=== PATIENT | male | born 1965 | race Caucasian/White ===

== ENCOUNTER → 2016-05-04 | Outpatient (CLI) | payer BC ==
--- NOTE | 2016-05-04 13:58 | DIAGNOSTIC IMAGING REPORT ---
CHEST 2 VIEWS ROUTINE CLINICAL HISTORY: Left-sided rib pain following fall. COMPARISON STUDY: No previous studies for comparison. FINDINGS: There is no pneumothorax or pleural effusion. Lungs are clear. Cardiac size is normal. Mediastinal contours are normal. No rib fractures are identified although sensitivity is somewhat diminished given this technique. IMPRESSION: 1. No acute cardiopulmonary findings. 2. No left-sided rib fractures identified although sensitivity is somewhat diminished given this technique. Electronically signed by: Ricki Gomez M.D. 05/04/2016 1:56 PM
== END | disposition home or self-care (01) ==
LOC: C.RAD1850 13:36
PROVIDERS: ATTEND Nurse Practitioner Family
DX: V00.3 Flat-bottomed pedestrian conveyance accident (principal); R07.81 Pleurodynia

== ENCOUNTER 2021-01-09 10:48 | Observation (INO) ==
[2021-01-09 11:44] LABS: Basophils # (auto) 0.02 K/uL (0-0.2); Basophils % (auto) 0.4 %; Eosinophils # (auto) 0.09 K/uL (0-0.5); Eosinophils % (auto) 1.8 %; Hematocrit (blood only) 43.3 % (42-52); Hemoglobin 14.6 g/dL (14.0-18.0); Immature Granulocytes # (auto) 0.06 K/uL (0.00-0.02); Immature Granulocytes % (auto) 1.2 %; Lymphocytes # (auto) 1.25 K/uL (1.2-3.4); Lymphocytes % (auto) 24.9 %; Mean Corpuscular Hemoglobin 31.5 pg (25-34); Mean Corpuscular Hgb Conc 33.7 g/dL (32-36); Mean Corpuscular Volume 93.5 fL (80-100); Mean Platelet Volume 11.3 fL (7.4-10.4); Monocytes # (auto) 0.56 K/uL (0.11-0.59); Monocytes % (auto) 11.2 %; Neutrophils # (auto) 3.04 K/uL (1.4-6.5); Neutrophils % (auto) 60.5 %; Platelet Count 174 K/uL (130-400); RDW Coefficient of Variation 12.6 % (11.5-14.5); RDW Standard Deviation 43.2 fL (36.4-46.3); Red Blood Count 4.63 M/uL (4.7-6.1); White Blood Count 5.02 K/uL (4.8-10.8)
--- NOTE | 2021-01-09 11:51 | XRay Report ---
RIGHT FOOT 3 VIEWS HISTORY: right foot pain COMPARISON: None. FINDINGS: There is no fracture or dislocation. Soft tissues are unremarkable. No radiopaque foreign b odies. Mild osteoarthritis at the first MTP joint. IMPRESSION: No fractures. ACT 112: Negative or not required by law. Electronically signed by: Brayan Nunez M.D. 01/09/2021 11:49 AM
--- NOTE | 2021-01-09 12:03 | Emergency Department Note ---
Impression & Plan Dennison palsy, Elevated troponin, Right foot pain ED Provider Note NAME: JOY BRYAN AGE: 55 SEX: M : 1965 ARRIVES VIA: Walk-In INFORMANT: Patient ED PROVIDER(S): Dav Hansen DO CHIEF COMPLAINT: facial droop HPI: Patient is a 55-year-old male who presents to the ER for the past 2days right-sided facial droop. Patient notes that he is having trouble closing his eyes, smiling and lifting the right side of his forehead. No recent tick bites but he notes he has had ticks on him previously. He has some pain in the foot which started over a week ago which is in between his first and second metatarsal. This has been there [place] the [place]. He denies any other weakness or numbness. No chest pain or shortness of breath. Patient did recently just drive 7 hours in the car twice over the past week. ROS: See above HPI for pertinent positives & negatives. A total of 10 systems reviewed and were otherwise negative. PAST MEDICAL HISTORY:See Below PAST SURGICAL HISTORY:See Below FAMILY HISTORY:See Below SOCIAL HISTORY:See Below HOME MEDICATIONS:See Below ALLERGIES:See Below VITALS:See Below PHYSICAL EXAMINATION: GENERAL: Sitting up in bed, alert, well appearing, well nourished, no distress, non-toxic EYE EXAM: normal conjunctiva. PERRL and EOM's intact. OROPHARYNX: no exudate, no erythema, lips, buccal mucosa, and tongue normal and mucous membranes are moist NECK: supple, no nuchal rigidity, no adenopathy, non-tender LUNGS: Clear to auscultation. Normal chest wall mechanics HEART: no murmurs, S1 normal and S2 normal ABDOMEN: abdomen soft, non-tender, normo-active bowel sounds, no masses, no rebound or guarding. BACK: Back is symmetrical on inspection and there is no deformity, no midline tenderness, no CVA tenderness. UPPER EXTREMITIES: upper extremities are grossly normal. LOWER EXTREMITIES: No pitting edema. NEURO EXAM: Normal sensorium, right-sided facial droop, unable to completely lift the right eyebrow, normal speech, no weakness of arms, no weakness of legs. No drift. Finger to nose intact. Gross sensation intact. Rapid alternating movements of upper extremities intact. [id number] intact. MEDICAL DECISION MAKING: Patient is a 55-year-old male who presents ER with a facial droop. He is found to have what appears to be consistent with Dennison's palsy. IV was established blood was obtained. Labs show no significant leukocytosis or anemia. D-dimer was elevated. BMP LFTs bilirubin was unremarkable. Troponin was elevated at 0.139. Lyme IgM came back equivocal and he was admitted at this point. Hospitalist elected to treat him prophylactically until the very final results. With a bump troponin question of this secondary to PE and CT angio was performed and unremarkable. Could also be a Lyme carditis. Patient is completely asymptomatic at this point. Discussed with hospitalist for further evaluation. Triage Nursing notes reviewed. Limited review of prior medical records performed Vital Signs: reviewed and remarkable for HTN Differential diagnosis: Differential Diagnosis includes but is not limited to ischemic Stroke, hemorrhagic stroke, bells palsy, mass, neoplasm, migraine headache, seizure, sub arachnoid hemorrhage, TIA, and transient global amnesia. ER treatment provided: See below Diagnostics interpreted by me: ECG: Sinus rhythm rate of 61 Normal axis No PVCs T wave inversion in lead III QTC 398 Cardiac Monitoring: An order was placed for continuous cardiac monitoring. The monitor shows a rate of 60 with sinus rhythm. Laboratory studies: As stated above and show below. Imaging studies: CT angio was negative for any PEs CT head was negative. 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 Required: No Beliefs That Will Affect Care: None Current Living Situation: Spouse Other Information That Helps Us Care for You: No Feels Safe at Home: Yes Safety Concerns: Feels Safe At This Time Assistive Devices: Glasses Allergies Allergies Allergy/AdvReac Type Severity Reaction Status Date / Time No Known Allergies Allergy Verified 01/09/21 12:59 Home Meds Home Medications Medication Instructions Recorded Confirmed multivitamin 1 tab PO QAM 05/20/19 01/09/21 simvastatin 20 mg tablet 20 mg PO QAM 05/20/19 01/09/21 aspirin 81 mg tablet,delayed 81 mg PO DAILY 01/09/21 01/09/21 release (Aspirin Low Dose) Results & Data (ED) Vital Signs Vital Signs - 24 hr 01/09/21 11:09 01/09/21 11:30 01/09/21 12:00 Temperature 36.6 C Temperature Source Temporal Artery Scan Pulse Rate 66 63 66 Pulse Rate [Left Finger] Respiratory Rate 16 18 18 Respiratory Effort / Characteristics Non-Labored Respiratory Depth Normal Blood Pressure 165/104 H Blood Pressure [Left Arm] Blood Pressure Mean 124 Blood Pressure Mean [Left Arm] Blood Pressure Position [Left Arm] Pulse Oximetry 97 95 97 Oxygen Delivery Method Room Air Sepsis Recent Fever Within 48 Hours No Sepsis New/Unexplained Change in Mental Status No Sepsis Action Taken by Nursing No Action Required 01/09/21 12:36 01/09/21 13:28 Temperature Temperature Source Pulse Rate 61 70 Pulse Rate [Left Finger] 57 L Respiratory Rate 13 20 Respiratory Effort / Characteristics Respiratory Depth Blood Pressure 150/107 H 153/95 H Blood Pressure [Left Arm] 150/107 H Blood Pressure Mean 121 114 Blood Pressure Mean [Left Arm] 121 Blood Pressure Position [Left Arm] Sitting Pulse Oximetry 98 97 Oxygen Delivery Method Sepsis Recent Fever Within 48 Hours Sepsis New/Unexplained Change in Mental Status Sepsis Action Taken by Nursing Laboratory Data Result diagrams: 01/09/21 11:35 01/09/21 11:35 Lab Results 01/09/21 01/09/21 01/09/21 Range/Units 11:35 11:35 11:35 WBC 5.02 (4.8-10.8) K/uL RBC 4.63 L (4.7-6.1) M/uL Hgb 14.6 (14.0-18.0) g/dL Hct 43.3 (42-52) % MCV 93.5 (80-100) fL MCH 31.5 (25-34) pg MCHC 33.7 (32-36) g/dL RDW Std Deviation 43.2 (36.4-46.3) fL RDW Coeff of Virgilio 12.6 (11.5-14.5) % Plt Count 174 (130-400) K/uL MPV 11.3 H (7.4-10.4) fL Immature Gran % (Auto) 1.2 % Neut % (Auto) 60.5 % Lymph % (Auto) 24.9 % [place] % (Auto) 11.2 % Eos % (Auto) 1.8 % Baso % (Auto) 0.4 % Neut # (Auto) 3.04 (1.4-6.5) K/uL Lymph # (Auto) 1.25 (1.2-3.4) K/uL [place] # (Auto) 0.56 (0.11-0.59) K/uL Eos # (Auto) 0.09 (0-0.5) K/uL Baso # (Auto) 0.02 (0-0.2) K/uL Immature Gran # (Auto) 0.06 H (0.00-0.02) K/uL ESR (0-20) mm/hr D-Dimer (0-500) ug/L FEU Sodium 140 (136-145) mmol/L Potassium 4.3 (3.5-5.1) mmol/L Chloride 105 (98-107) mmol/L Carbon Dioxide 28 (21-32) mmol/L Anion Gap 7.0 (3-11) BUN 18 (7-18) mg/dl Creatinine 1.01 (0.6-1.4) mg/dl Est Cr Clr Drug Dosing 103.5 ml/min Est GFR ( Amer) 96.6 ml/min Est GFR (Non-Af Amer) 83.3 ml/min BUN/Creatinine Ratio 17.8 (10-20) Glucose 108 H (70-99) mg/dl Calcium 8.7 (8.5-10.1) mg/dl Total Bilirubin 0.5 (0.2-1) mg/dl AST 44 H (15-37) U/L ALT 65 (12-78) U/L Alkaline Phosphatase 45 (45-117) U/L Troponin I (0-0.045) ng/ml C-Reactive Protein (0-0.29) mg/dl Total Protein 7.0 (6.4-8.2) gm/dl Albumin 3.9 (3.4-5.0) gm/dl Globulin 3.1 (2.5-4.0) gm/dl Albumin/Globulin Ratio 1.3 (0.9-2) Lyme Disease IgG Ab Negative (Negative) Lyme Disease IgM Ab Equivocal A (Negative) COVID-19 Eval Order SARS-CoV-2 (PCR) (Negative) 01/09/21 01/09/21 01/09/21 Range/Units 11:35 11:35 11:35 WBC (4.8-10.8) K/uL RBC (4.7-6.1) M/uL Hgb (14.0-18.0) g/dL Hct (42-52) % MCV (80-100) fL MCH (25-34) pg MCHC (32-36) g/dL RDW Std Deviation (36.4-46.3) fL RDW Coeff of Virgilio (11.5-14.5) % Plt Count (130-400) K/uL MPV (7.4-10.4) fL Immature Gran % (Auto) % Neut % (Auto) % Lymph % (Auto) % [place] % (Auto) % Eos % (Auto) % Baso % (Auto) % Neut # (Auto) (1.4-6.5) K/uL Lymph # (Auto) (1.2-3.4) K/uL [place] # (Auto) (0.11-0.59) K/uL Eos # (Auto) (0-0.5) K/uL Baso # (Auto) (0-0.2) K/uL Immature Gran # (Auto) (0.00-0.02) K/uL ESR 5 (0-20) mm/hr D-Dimer 610 H* (0-500) ug/L FEU Sodium (136-145) mmol/L Potassium (3.5-5.1) mmol/L Chloride (98-107) mmol/L Carbon Dioxide (21-32) mmol/L Anion Gap (3-11) BUN (7-18) mg/dl Creatinine (0.6-1.4) mg/dl Est Cr Clr Drug Dosing ml/min Est GFR ( Amer) ml/min Est GFR (Non-Af Amer) ml/min BUN/Creatinine Ratio (10-20) Glucose (70-99) mg/dl Calcium (8.5-10.1) mg/dl Total Bilirubin (0.2-1) mg/dl AST (15-37) U/L ALT (12-78) U/L Alkaline Phosphatase (45-117) U/L Troponin I 0.137 H* (0-0.045) ng/ml C-Reactive Protein (0-0.29) mg/dl Total Protein (6.4-8.2) gm/dl Albumin (3.4-5.0) gm/dl Globulin (2.5-4.0) gm/dl Albumin/Globulin Ratio (0.9-2) Lyme Disease IgG Ab (Negative) Lyme Disease IgM Ab (Negative) COVID-19 Eval Order SARS-CoV-2 (PCR) (Negative) 01/09/21 01/09/21 01/09/21 Range/Units 11:35 13:12 13:12 WBC (4.8-10.8) K/uL RBC (4.7-6.1) M/uL Hgb (14.0-18.0) g/dL Hct (42-52) % MCV (80-100) fL MCH (25-34) pg MCHC (32-36) g/dL RDW Std Deviation (36.4-46.3) fL RDW Coeff of Virgilio (11.5-14.5) % Plt Count (130-400) K/uL MPV (7.4-10.4) fL Immature Gran % (Auto) % Neut % (Auto) % Lymph % (Auto) % [place] % (Auto) % Eos % (Auto) % Baso % (Auto) % Neut # (Auto) (1.4-6.5) K/uL Lymph # (Auto) (1.2-3.4) K/uL [place] # (Auto) (0.11-0.59) K/uL Eos # (Auto) (0-0.5) K/uL Baso # (Auto) (0-0.2) K/uL Immature Gran # (Auto) (0.00-0.02) K/uL ESR (0-20) mm/hr D-Dimer (0-500) ug/L FEU Sodium (136-145) mmol/L Potassium (3.5-5.1) mmol/L Chloride (98-107) mmol/L Carbon Dioxide (21-32) mmol/L Anion Gap (3-11) BUN (7-18) mg/dl Creatinine (0.6-1.4) mg/dl Est Cr Clr Drug Dosing ml/min Est GFR ( Amer) ml/min Est GFR (Non-Af Amer) ml/min BUN/Creatinine Ratio (10-20) Glucose (70-99) mg/dl Calcium (8.5-10.1) mg/dl Total Bilirubin (0.2-1) mg/dl AST (15-37) U/L ALT (12-78) U/L Alkaline Phosphatase (45-117) U/L Troponin I (0-0.045) ng/ml C-Reactive Protein < 0.29 (0-0.29) mg/dl Total Protein (6.4-8.2) gm/dl Albumin (3.4-5.0) gm/dl Globulin (2.5-4.0) gm/dl Albumin/Globulin Ratio (0.9-2) Lyme Disease IgG Ab (Negative) Lyme Disease IgM Ab (Negative) COVID-19 Eval [address] Covid19 at [facility] SARS-CoV-2 (PCR) NEGATIVE (Negative) Administered Medications Prednisone (Prednisone 50 Mg Tab) 50 mg PO DAILY IRISH Stop: 02/08/21 15:14 Last Admin: 01/09/21 18:19 Dose: 50 mg Documented by: [id number] Discontinued Medications Enoxaparin Sodium (Enoxaparin Inj 40 Mg/0.4 Ml Syr) 40 mg SQ DAILY STA Stop: 01/09/21 14:15 Last Admin: 01/09/21 16:37 Dose: Not Given Documented by: [id number] Doxycycline Hyclate 100 mg/ (Dextrose) 110 mls @ 50 mls/hr IV NOW STA Stop: 01/09/21 16:42 Last Admin: 01/09/21 16:36 Dose: 50 mls/hr Documented by: [id number] Ioversol (Optiray 320 125ml) 118 ml IV ONCE ONE Stop: 01/09/21 13:10 Last Admin: 01/09/21 13:09 Dose: 118 ml Documented by: [id number] Pantoprazole Sodium (Pantoprazole 40 Mg Tab) 40 mg PO NOW STA Stop: 01/09/21 15:07 Last Admin: 01/09/21 18:18 Dose: 40 mg Documented by: [id number] Imaging Data Radiologist's Impression: Foot X-Ray 01/09/21 11:35 RIGHT FOOT 3 VIEWS HISTORY: right foot pain COMPARISON: None. FINDINGS: There is no fracture or dislocation. Soft tissues are unremarkable. No radiopaque foreign bodies. Mild osteoarthritis at the first MTP joint. IMPRESSION: No fractures. ACT 112: Negative or not required by law. Electronically signed by: Brayan Nunez M.D. 01/09/2021 11:[address] 01/09/21 12:[address] DOSE: 614.27 mGy.cm HISTORY: Right-sided facial droop TECHNIQUE: Multiaxial CT images of the head were performed without the use of intravenous contrast. Automated exposure control was utilized for this study. A dose lowering technique was utilized adhering to the principles of ALARA. Comparison: None. Findings: The paranasal sinuses and mastoid air cells are clear. The calvarium and skull base are intact. The ventricles and sulci are within normal limits. There is no mass, hematoma, midline shift, or acute infarct. Impression: No acute intracranial abnormality. ACT 112: Negative or not required by law. Electronically signed by: Brayan Nunez M.D. 01/09/2021 1:19 PM Chest CTA 01/09/21 13:06 CHEST CTA for PULMONARY ARTER[address] CT DOSE: 693.20 mGy.cm HISTORY: Assess for pulmonary embolus. +trop 7hr in car TECHNIQUE: Multiaxial CT images of the chest were performed following the intravenous administration of contrast to evaluate the pulmonary arteries. Maximal intensity projection images were also obtained. A dose lowering technique was utilized adhering to the principles of ALARA. COMPARISON STUDY: None. FINDINGS: Limited views of the upper abdomen demonstrate normal liver, spleen, and adrenal glands. Normal esophagus. No mediastinal or hilar lymphadenopathy. No pleural or pericardial effusions. The heart is normal in size. No suspicious lytic are blastic osseous lesions. Normal caliber thoracic aorta with no evidence for dissection. No filling defects within the pulmonary arteries to suggest a pulmonary embolus. The central airways are patent. No pneumothorax. No focal lung consolidations to suggest pneumonia. A 6 mm subpleural nodule within the right lower lobe in image 142. A 4 mm subpleural nodule within the base of the left lower lobe on image 36. IMPRESSION: 1. No evidence for pulmonary embolus. 2. A 6 mm subpleural nodule within the right lower lobe and a 4 mm subpleural nodule within the base of the left lower lobe. Follow-up recommended below. Please refer to below summary of Fleischner criteria recommendations for follow- up of incidental CT nodules (Andrew Quesada, Guidelines for management of small pulmonary nodules detected on CT scans: A statement from the Fleischner Society, Radiology 237: [phone].) SOLID NODULES Solitary nodule size: <6 mm * Low risk patients: no follow-up needed * high risk patients: optional CT at 12 months Solitary nodule size: 6-8 mm * Low risk patients: follow-up at 6-12 months, then consider further follow-up at 18-24 months * high risk patients: initial follow-up CT at 6-12 months and then at 18-24 months if no change Solitary nodule size: >8 mm * either low or high risk patients - consider follow-up CT at 3 months, and/or CT-PET, and/or biopsy Multiple nodules size: <6 mm * Low risk patients: no routine follow-up * high risk patients: optional CT at 12 months Multiple nodules size: 6-8 mm * Low risk patients: follow-up at 3-6 months, then consider further follow-up at 18-24 months * high risk patients: follow-up at 3-6 months, then at 18-24 months if no change Multiple nodules size: >8 mm * Low risk patients: follow-up at 3-6 months, then consider further follow-up at 18-24 months * high risk patients: follow-up at 3-6 months, then at 18-24 months if no change Note: newly detected indeterminate nodule in persons 35 years of age or older. * Low risk patients: minimal or absent history of smoking and/or other known risk factors * high risk patients: history of smoking or of other known risk factors (e.g. first degree relative with lung cancer, or exposure to asbestos, radon, uranium) * if a nodule up to 8 mm is partly solid or is ground glass further follow-up is required after 24 months to exclude possible slow growing adenocarcinoma (MONICA) SUBSOLID NODULES Solitary pure ground-glass nodule * nodule size <6 mm - no CT follow-up required * nodule size >=6 mm - follow-up CT at 6-12 months, then every 2 years until 5 years Solitary part-solid nodule * nodule size <6 mm - no CT follow-up required * nodule size >=6 mm - follow-up CT at 3-6 months. If unchanged, and solid component remains <6 mm, then annual follow-up for 5 years Multiple subsolid nodules * nodule size <6 mm - follow-up CT at 3-6 months, consider further follow-up at 2 and 4 years if stable * nodule size >=6 mm - follow-up CT at 3-6 months, subsequent management based on the most suspicious nodule(s) ACT 112: Negative or not required by law. Electronically signed by: Brayan Nunez M.D. 01/09/2021 1:38 PM Brain MRI 01/09/21 14:03 Brain MRI WITHOUT CONTRAST HISTORY: Right-sided facial droop. evaluate for ischemia TECHNIQUE: Multiplanar multisequence MRI of the brain was performed without the use of contrast. COMPARISON STUDY: Head CT 01/09/2021. FINDINGS: There are no areas of restricted diffusion to suggest acute infarction. The midline structures are intact. Small retention cyst within the right maxillary sinus. The mastoid air cells are clear. The ventricles and sulci are within normal limits for age. There is no mass, hematoma, midline shift. The major vascular flow-voids at the skull base are well maintained. A few scattered foci of T2 hyperintensity seen within the periventricular and subcortical white matter of the supratentorial brain. These are most pronounced within the bilateral parietal lobes. IMPRESSION: 1. No acute infarct. 2. No acute intracranial hemorrhage. 3. A few scattered foci of T2 hyperintensity seen within the periventricular and subcortical white matter of the supratentorial brain. These are most pronounced within the bilateral parietal lobes. These are nonspecific but favor mild microvascular ischemic change. A demyelinating disease or Lyme disease could also have a similar appearance but are considered less likely. ACT 112: Negative or not required by law. Electronically signed by: Brayan Nunez M.D. 01/09/2021 5:36 PM Discharge Plan Visit Data Chief Complaint: Dennison's Palsy Symptoms Stated Complaint: Dennison's Palsy Symptoms FOOT PAIN ED Provider: Dav Hansen Discharge Problem: Dennison palsy, Elevated troponin, Right foot pain Patient Disposition: Admitted As Inpatient Discharge Instructions Interventions: ED Discharge Assessment Last Done: 01/09/21 15:20
[2021-01-09 12:06] LABS: Albumin Level 3.9 gm/dl (3.4-5.0); BUN Creatinine Ratio 17.8 (10-20); Calcium 8.7 mg/dl (8.5-10.1); Creatinine Clr Calc Pharmacy 103.5 ml/min; Est GFR (African American) 96.6 ml/min; Est GFR (Non-African American) 83.3 ml/min; Potassium 4.3 mmol/L (3.5-5.1)
[2021-01-09 12:08] LABS: Albumin Globulin Ratio 1.3 (0.9-2); Bilirubin,Total 0.5 mg/dl (0.2-1); Globulin 3.1 gm/dl (2.5-4.0)
[2021-01-09 12:52] LABS: Lyme Ab IgG w/WB Rflx Negative (Negative)
[2021-01-09] MEDS ORDERED: OPTIRAY 320 125ml IV ONE (13:09)
[2021-01-09 13:11] LABS: Lyme Ab IgM w/WB Rflx Equivocal (Negative)
--- NOTE | 2021-01-09 13:20 | CT Scan Report ---
HEAD CT NONCONTRAST CT DOSE: 614.27 mGy.cm HISTORY: Right-sided facial droop TECHNIQUE: Multiaxial CT images of the head were performed without the use of intravenous contrast. A utomated exposure control was utilized for this study. A dose lowering technique was utilized adheri ng to the principles of ALARA. Comparison: None. Findings: The paranasal sinuses and mastoid air cells are clear. The calvarium and skull base are int act. The ventricles and sulci are within normal limits. There is no mass, hematoma, midline shift, or acute infarct. Impression: No acute intracranial abnormality. ACT 112: Negative or not required by law. Electronically signed by: Brayan Nunez M.D. 01/09/2021 1:19 PM
[2021-01-09 13:28] LABS: D Dimer 610 ug/L FEU (0-500)
--- NOTE | 2021-01-09 13:39 | CT Scan Report ---
CHEST CTA for PULMONARY ARTERIES CT DOSE: 693.20 mGy.cm HISTORY: Assess for pulmonary embolus. +trop 7hr in car TECHNIQUE: Multiaxial CT images of the chest were performed following the intravenous administration of contrast to evaluate the pulmonary arteries. Maximal intensity projection images were also obtaine d. A dose lowering technique was utilized adhering to the principles of ALARA. COMPARISON STUDY: None. FINDINGS: Limited views of the upper abdomen demonstrate normal liver, spleen, and adrenal glands. No rmal esophagus. No mediastinal or hilar lymphadenopathy. No pleural or pericardial effusions. The hea rt is normal in size. No suspicious lytic are blastic osseous lesions. Normal caliber thoracic aorta with no evidence for dissection. No filling defects within the pulmonary arteries to suggest a pulmon david embolus. The central airways are patent. No pneumothorax. No focal lung consolidations to suggest pneumonia. A 6 mm subpleural nodule within the right lower lobe in image 142. A 4 mm subpleural nodu le within the base of the left lower lobe on image 36. IMPRESSION: 1. No evidence for pulmonary embolus. 2. A 6 mm subpleural nodule within the right lower lobe and a 4 mm subpleural nodule within the base of the left lower lobe. Follow-up recommended below. Please refer to below summary of Fleischner criteria recommendations for follow-up of incidental CT n odules (Andrew Quesada, Guidelines for management of small pulmonary nodules detected on CT scans: A sta tement from the Fleischner Society, Radiology 237: [phone].) SOLID NODULES Solitary nodule size: <6 mm * Low risk patients: no follow-up needed * high risk patients: optional CT at 12 months Solitary nodule size: 6-8 mm * Low risk patients: follow-up at 6-12 months, then consider further follow-up at 18-24 months * high risk patients: initial follow-up CT at 6-12 months and then at 18-24 months if no change Solitary nodule size: >8 mm * either low or high risk patients - consider follow-up CT at 3 months, and/or CT-PET, and/or biopsy Multiple nodules size: <6 mm * Low risk patients: no routine follow-up * high risk patients: optional CT at 12 months Multiple nodules size: 6-8 mm * Low risk patients: follow-up at 3-6 months, then consider further follow-up at 18-24 months * high risk patients: follow-up at 3-6 months, then at 18-24 months if no change Multiple nodules size: >8 mm * Low risk patients: follow-up at 3-6 months, then consider further follow-up at 18-24 months * high risk patients: follow-up at 3-6 months, then at 18-24 months if no change Note: newly detected indeterminate nodule in persons 35 years of age or older. * Low risk patients: minimal or absent history of smoking and/or other known risk factors * high risk patients: history of smoking or of other known risk factors (e.g. first degree relative with lung cancer, or exposure to asbestos, radon, uranium) * if a nodule up to 8 mm is partly solid or is ground glass further follow-up is required after 24 m onths to exclude possible slow growing adenocarcinoma (MONICA) SUBSOLID NODULES Solitary pure ground-glass nodule * nodule size <6 mm - no CT follow-up required * nodule size >=6 mm - follow-up CT at 6-12 months, then every 2 years until 5 years Solitary part-solid nodule * nodule size <6 mm - no CT follow-up required * nodule size >=6 mm - follow-up CT at 3-6 months. If unchanged, and solid component remains <6 mm, then annual follow-up for 5 years Multiple subsolid nodules * nodule size <6 mm - follow-up CT at 3-6 months, consider further follow-up at 2 and 4 years if sta ble * nodule size >=6 mm - follow-up CT at 3-6 months, subsequent management based on the most suspiciou s nodule(s) ACT 112: Negative or not required by law. Electronically signed by: Brayan Nunez M.D. 01/09/2021 1:38 PM
[2021-01-09] MEDS ORDERED: ENOXAPARIN INJ 40 MG/0.4 ML SYR SQ STA (14:14)
--- NOTE | 2021-01-09 14:17 | History & Physical Report ---
Date of Service January 09, 2021 Assessment & Plan (1) Elevated troponin: Plan: Patient with elevated Troponin no dyanmic ECG changes - Risk factors, obesity, family history, HLD - He is physically active - Elevated with D-dmier- ? 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 Patient comes to the EMD today for complaints of right tongue and lip numbness, right eye lacrimation and decrease sensation to his right side of his face. This started a few days ago on his drive back from [place]. He also had complaint of right midfoot pain that has started as well. He denies any new medications and has not received any new vaccines. In the EMD he had routine labs drawn to include troponin I and D-dimer with his presentation likely dennison's palsy. The D-dimer and troponin I was elevated and subsequently had a CTA of the chest performed, which was negative for PE or acute process. Patient had and ECG done with non specific t-wave abnormality and no comparison. 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 He was at [place] this weekend for 7 days with his family where he was chasing his kids around the beach, he also was swimming in the ocean, without any chest pain and/or dyspnea. He remains without symptoms other than his numbness and facial sensation decrease at this time. Patient will be observed overnight, trend troponin I and ECG, MRI of the brain to rule out ischemia, ECHO and risk stratify his cardiac status. Patient does not have his COVID vaccine and his test on admission is NEGATIVE. Allergies Allergy/AdvReac Type Severity Reaction Status Date / Time No Known Allergies Allergy Verified 01/09/21 12:59 Home Medications Medication Instructions Recorded Confirmed Type multivitamin 1 tab PO QAM 05/20/19 01/09/21 History simvastatin 20 mg tablet 20 mg PO QAM 05/20/19 01/09/21 History aspirin 81 mg tablet,delayed 81 mg PO DAILY 01/09/21 01/09/21 History release (Aspirin Low Dose) doxycycline hyclate 100 mg capsule 100 mg PO BID 14 Days #28 cap 01/10/21 Rx prednisone 20 mg tablet 60 mg PO DAILY 7 Days #21 tab 01/10/21 Rx Past Med/Surg History Medical History (Updated 01/10/21 @ 17:01 by Dennys Almendarez MD) Hyperlipidemia Surgical History History of colonoscopy Family History (Updated 01/09/21 @ 14:38 by MAITE Benoit) Other Diabetes Dyslipidemia Heart disease Hypertension Social History Smoking Status: Never smoker Second Hand Exposure: No; Hx Alcohol Use: Yes Alcohol type: beer Hx Substance Use: No Preferred Language: Telugu Communication Ability: Effective Account Leader Required: No Beliefs That Will Affect Care: None Current Living Situation: Spouse Feels Safe at Home: Yes Assistive Devices: None Review of Systems Review of Systems: REVIEW OF SYSTEMS: Constitutional: No fever, sweats or chills Eyes: (+) lacrimation of the eye, No diplopia, no worsening or blurred vision ENT: (+) numbness tingling of the face and tongue, normal hearing, no trouble swallowing Respiratory: No cough, sputum, dyspnea at rest or on exertion Cardiovascular: No chest pain, tightness or palpitations Abdomen: No pain, nausea, vomiting, diarrhea or constipation Musculoskeletal: (+) right foot pain, No joint pain, calf pain, swelling Neurologic: No weakness, numbness/tingling, or balance problems Psychiatric: No anxiety or depression Skin: No rash or itch Physical Exam Constitutional: PHYSICAL EXAM: General: awake, alert, no apparent distress Head: Normocephalic, atraumatic ENT: PERRL, EOMI, no pharyngeal exudate, mucous membranes moist. Neuro: loss of wrinkles to right forehead, nasolabial fold on the righ, and right facial droop, sensation decreased to right face,nose, lip. AAO x 3, speech clear and appropriate, strength intact bilaterally 5/5, sensation intact and equal all extremities and dermatomes, no pronator drift Chest: equal rise and fall of the chest, no accessory muscle use, no heaves or thirlls, Clear to auscultation, on room air, Cardiac: Regular rate and rhythm, telemetry reviewed, skin warm dry, cap refill <3 seconds, peripheral pulses +2 no JVD, no murmur, no edema GI: NABS x 4 quadrants, soft, nontender to palpation, no rebound, guarding or tenderness : Spontaneously voiding, no pain, no CVA tenderness, Extremities: Normal inspection, no peripheral edema or erythema, calfs nontender to palpation Psych: Normal mood and affect Skin: no rash or erythema Results & Data Results & Data ([facility]) Vital Signs (Past 12 Hours) Vital Signs Temp Pulse Pulse Resp BP BP Pulse Ox 01/09/21 13:28 70 20 153/95 H 97 01/09/21 12:36 61 57 L 13 150/107 H 150/107 H 98 01/09/21 12:00 66 18 97 01/09/21 11:30 63 18 95 01/09/21 11:09 36.6 C 66 16 165/104 H 97 Laboratory Results Abnormal lab results 01/09/21 01/09/21 01/09/21 Range/Units 11:35 11:35 11:35 RBC 4.63 L (4.7-6.1) M/uL MPV 11.3 H (7.4-10.4) fL Immature Gran # (Auto) 0.06 H (0.00-0.02) K/uL D-Dimer (0-500) ug/L FEU Glucose 108 H (70-99) mg/dl AST 44 H (15-37) U/L Troponin I (0-0.045) ng/ml Lyme Disease IgM Ab Equivocal A (Negative) 01/09/21 01/09/21 Range/Units 11:35 11:35 RBC (4.7-6.1) M/uL MPV (7.4-10.4) fL Immature Gran # (Auto) (0.00-0.02) K/uL D-Dimer 610 H* (0-500) ug/L FEU Glucose (70-99) mg/dl AST (15-37) U/L Troponin I 0.137 H* (0-0.045) ng/ml Lyme Disease IgM Ab (Negative) Diagnostic Findings Foot X-Ray 01/09/21 11:35 RIGHT FOOT 3 VIEWS HISTORY: right foot pain COMPARISON: None. FINDINGS: There is no fracture or dislocation. Soft tissues are unremarkable. No radiopaque foreign bodies. Mild osteoarthritis at the first MTP joint. IMPRESSION: No fractures. ACT 112: Negative or not required by law. Electronically signed by: Brayan Nunez M.D. 01/09/2021 11:[address] 01/09/21 12:[address] DOSE: 614.27 mGy.cm HISTORY: Right-sided facial droop TECHNIQUE: Multiaxial CT images of the head were performed without the use of intravenous contrast. Automated exposure control was utilized for this study. A dose lowering technique was utilized adhering to the principles of ALARA. Comparison: None. Findings: The paranasal sinuses and mastoid air cells are clear. The calvarium and skull base are intact. The ventricles and sulci are within normal limits. There is no mass, hematoma, midline shift, or acute infarct. Impression: No acute intracranial abnormality. ACT 112: Negative or not required by law. Electronically signed by: Brayan Nunez M.D. 01/09/2021 1:19 PM Chest CTA 01/09/21 13:06 CHEST CTA for PULMONARY ARTERIES CT DOSE: 693.20 mGy.cm HISTORY: Assess for pulmonary embolus. +trop 7hr in car TECHNIQUE: Multiaxial CT images of the chest were performed following the intravenous administration of contrast to evaluate the pulmonary arteries. Maximal intensity projection images were also obtained. A dose lowering technique was utilized adhering to the principles of ALARA. COMPARISON STUDY: None. FINDINGS: Limited views of the upper abdomen demonstrate normal liver, spleen, and adrenal glands. Normal esophagus. No mediastinal or hilar lymphadenopathy. No pleural or pericardial effusions. The heart is normal in size. No suspicious lytic are blastic osseous lesions. Normal caliber thoracic aorta with no evidence for dissection. No filling defects within the pulmonary arteries to suggest a pulmonary embolus. The central airways are patent. No pneumothorax. No focal lung consolidations to suggest pneumonia. A 6 mm subpleural nodule within the right lower lobe in image 142. A 4 mm subpleural nodule within the base of the left lower lobe on image 36. IMPRESSION: 1. No evidence for pulmonary embolus. 2. A 6 mm subpleural nodule within the right lower lobe and a 4 mm subpleural nodule within the base of the left lower lobe. Follow-up recommended below. Please refer to below summary of Fleischner criteria recommendations for follow- up of incidental CT nodules (Andrew Quesada, Guidelines for management of small pulmonary nodules detected on CT scans: A statement from the Fleischner Society, Radiology 237: [phone].) SOLID NODULES Solitary nodule size: <6 mm * Low risk patients: no follow-up needed * high risk patients: optional CT at 12 months Solitary nodule size: 6-8 mm * Low risk patients: follow-up at 6-12 months, then consider further follow-up at 18-24 months * high risk patients: initial follow-up CT at 6-12 months and then at 18-24 months if no change Solitary nodule size: >8 mm * either low or high risk patients - consider follow-up CT at 3 months, and/or CT-PET, and/or biopsy Multiple nodules size: <6 mm * Low risk patients: no routine follow-up * high risk patients: optional CT at 12 months Multiple nodules size: 6-8 mm * Low risk patients: follow-up at 3-6 months, then consider further follow-up at 18-24 months * high risk patients: follow-up at 3-6 months, then at 18-24 months if no change Multiple nodules size: >8 mm * Low risk patients: follow-up at 3-6 months, then consider further follow-up at 18-24 months * high risk patients: follow-up at 3-6 months, then at 18-24 months if no change Note: newly detected indeterminate nodule in persons 35 years of age or older. * Low risk patients: minimal or absent history of smoking and/or other known risk factors * high risk patients: history of smoking or of other known risk factors (e.g. first degree relative with lung cancer, or exposure to asbestos, radon, uranium) * if a nodule up to 8 mm is partly solid or is ground glass further follow-up is required after 24 months to exclude possible slow growing adenocarcinoma (MONICA) SUBSOLID NODULES Solitary pure ground-glass nodule * nodule size <6 mm - no CT follow-up required * nodule size >=6 mm - follow-up CT at 6-12 months, then every 2 years until 5 years Solitary part-solid nodule * nodule size <6 mm - no CT follow-up required * nodule size >=6 mm - follow-up CT at 3-6 months. If unchanged, and solid component remains <6 mm, then annual follow-up for 5 years Multiple subsolid nodules * nodule size <6 mm - follow-up CT at 3-6 months, consider further follow-up at 2 and 4 years if stable * nodule size >=6 mm - follow-up CT at 3-6 months, subsequent management based on the most suspicious nodule(s) ACT 112: Negative or not required by law. Electronically signed by: Brayan Nunez M.D. 01/09/2021 1:38 PM Medications Administered Discontinued Medications Ioversol (Optiray 320 125ml) 118 ml IV ONCE ONE Stop: 01/09/21 13:10 Last Admin: 01/09/21 13:09 Dose: 118 ml Documented by: [id number] Home Medications multivitamin 1 tab PO QAM 05/20/19 [History Confirmed 01/09/21] simvastatin 20 mg tablet 20 mg PO QAM 05/20/19 [History Confirmed 01/09/21] aspirin 81 mg tablet,delayed release (Aspirin Low Dose) 81 mg PO DAILY 01/09/21 [History Confirmed 01/09/21] Active Medications Doxycycline Hyclate 100 mg/ (Dextrose) 110 mls @ 50 mls/hr IV NOW STA Stop: 01/09/21 16:42 ECG Additional Comments: Normal sinus rhythm Abnormal QRS-T angle, consider primary T wave abnormality Abnormal ECG No previous ECGs available Code Status & VTE Plan VTE Prophylaxis Plan VTE Prophylaxis will be ordered: Yes Supervising Physician Co-Signing Physician Notes Attending addendum: I have physically seen this patient, have supervised the CIARA's activities, and agree with the H&P unless as otherwise noted. Assessment and Plan: Elevated troponin- Troponin 0.137 upon admission The patient will be admitted to telemetry for serial cardiac enzymes, serial EKG's, cardiac rhythm monitoring and a 2-D echocardiogram with Dopplers. Check a fasting lipid panel and hemoglobin A1c Dennison's palsy- Equivocal Lyme testing We will treat empirically with doxycycline milligrams IV every 12 hours Prednisone taper as noted CT of head negative for acute event MRI brain without contrast ordered and pending Hyperlipidemia- continue simvastatin Remaining orders and notations as noted PG Care Time/CCT Total # of Minutes Spent Total Time Spent with Patient: Total time spent is greater than 50% in coordination of care (as documented) at patient's floor/unit and/or counseling patient: Coding Level of Care Code INT OBSERVATION CARE 70M LVL 3 Diagnoses Dennison palsy G51.0 HLD (hyperlipidemia) E78.5 Elevated troponin R77.8 Right foot pain M79.671 Lung nodule R91.1
[2021-01-09] MEDS ORDERED: DOXYCYCLINE HYCLATE 100 MG in DEXTROSE 5% 100 ML IV STA (14:31)
[2021-01-09] MEDS ORDERED: PANTOprazole 40 MG TAB PO STA (15:06)
[2021-01-09] MEDS ORDERED: ONDANSETRON INJ 2 MG/ML 2 ML VIAL IV PRN (16:16)
[2021-01-09] MEDS ORDERED: ACETAMINOPHEN 325 MG TAB PO PRN (16:16)
[2021-01-09] MEDS ORDERED: Nursing to Pharmacy Communication SCH (17:00)
--- NOTE | 2021-01-09 17:38 | Magnetic Resonance Report ---
Brain MRI WITHOUT CONTRAST HISTORY: Right-sided facial droop. evaluate for ischemia TECHNIQUE: Multiplanar multisequence MRI of the brain was performed without the use of contrast. COMPARISON STUDY: Head CT 01/09/2021. FINDINGS: There are no areas of restricted diffusion to suggest acute infarction. The midline structu res are intact. Small retention cyst within the right maxillary sinus. The mastoid air cells are risa r. The ventricles and sulci are within normal limits for age. There is no mass, hematoma, midline alana ft. The major vascular flow-voids at the skull base are well maintained. A few scattered foci of T2 h yperintensity seen within the periventricular and subcortical white matter of the supratentorial brai n. These are most pronounced within the bilateral parietal lobes. IMPRESSION: 1. No acute infarct. 2. No acute intracranial hemorrhage. 3. A few scattered foci of T2 hyperintensity seen within the periventricular and subcortical white ma tter of the supratentorial brain. These are most pronounced within the bilateral parietal lobes. Thes e are nonspecific but favor mild microvascular ischemic change. A demyelinating disease or Lyme disea se could also have a similar appearance but are considered less likely. ACT 112: Negative or not required by law. Electronically signed by: Brayan Nunez M.D. 01/09/2021 5:36 PM
[2021-01-09] MEDS: predniSONE 50 MG TAB PO SCH (18:19)
[2021-01-10] MEDS ORDERED: DOXYCYCLINE HYCLATE 100 MG in DEXTROSE 5% 100 ML IV SCH (06:00)
[2021-01-10] MEDS: predniSONE 50 MG TAB PO SCH (07:45)
[2021-01-10 07:57] LABS: Basophils # (auto) 0.01 K/uL (0-0.2); Basophils % (auto) 0.1 %; Eosinophils # (auto) 0.01 K/uL (0-0.5); Eosinophils % (auto) 0.1 %; Hematocrit (blood only) 45.2 % (42-52); Hemoglobin 15.3 g/dL (14.0-18.0); Immature Granulocytes # (auto) 0.04 K/uL (0.00-0.02); Immature Granulocytes % (auto) 0.4 %; Lymphocytes # (auto) 1.32 K/uL (1.2-3.4); Lymphocytes % (auto) 12.6 %; Mean Corpuscular Hemoglobin 31.9 pg (25-34); Mean Corpuscular Hgb Conc 33.8 g/dL (32-36); Mean Corpuscular Volume 94.4 fL (80-100); Mean Platelet Volume 11.7 fL (7.4-10.4); Monocytes % (auto) 9.6 %; Neutrophils # (auto) 8.08 K/uL (1.4-6.5); Neutrophils % (auto) 77.2 %; Platelet Count 206 K/uL (130-400); RDW Coefficient of Variation 12.6 % (11.5-14.5); RDW Standard Deviation 43.1 fL (36.4-46.3); Red Blood Count 4.79 M/uL (4.7-6.1); White Blood Count 10.46 K/uL (4.8-10.8)
[2021-01-10 08:39] LABS: BUN Creatinine Ratio 16.3 (10-20); Calcium 9.1 mg/dl (8.5-10.1); Creatinine Clr Calc Pharmacy 100.5 ml/min; Est GFR (African American) 93.2 ml/min; Est GFR (Non-African American) 80.5 ml/min; Magnesium 2.3 mg/dl (1.8-2.4); Potassium 3.9 mmol/L (3.5-5.1)
[2021-01-10 08:40] LABS: Troponin I 0.11 ng/ml (0-0.045)
[2021-01-10] MEDS ORDERED: ASPIRIN 81 MG ECTAB PO SCH (09:00)
[2021-01-10] MEDS ORDERED: SIMVASTATIN 20 MG TAB PO SCH (09:00)
--- NOTE | 2021-01-10 13:22 | XCELERA ---
[id number]
--- NOTE | 2021-01-10 15:05 | Electrocardiogram Report ---
Test Reason : Blood Pressure : / mmHG Vent. Rate : 061 BPM Atrial Rate : 061 BPM P-R Int : 152 ms QRS Dur : 094 ms QT Int : 396 ms P-R-T Axes : 045 078 -10 degrees QTc Int : 398 ms Normal sinus rhythm T wave abnormality, consider inferior ischemia Abnormal ECG No previous ECGs available Confirmed by Eder Gonzalez ([id number]) on 01/10/2021 3:05:00 PM Referred By: REFERRED SELF Confirmed By:Eder Gonzalez
--- NOTE | 2021-01-10 15:25 | Electrocardiogram Report ---
Test Reason : Blood Pressure : / mmHG Vent. Rate : 064 BPM Atrial Rate : 064 BPM P-R Int : 162 ms QRS Dur : 086 ms QT Int : 408 ms P-R-T Axes : 035 053 011 degrees QTc Int : 420 ms Normal sinus rhythm Normal ECG When compared with ECG of 09-JAN-2021 11:29, (unconfirmed) No significant change was found Confirmed by Eder Gonzalez ([id number]) on 01/10/2021 3:25:01 PM Referred By: REFERRED SELF Confirmed By:Eder Gonzalez
--- NOTE | 2021-01-10 15:42 | Electrocardiogram Report ---
Test Reason : Blood Pressure : / mmHG Vent. Rate : 058 BPM Atrial Rate : 058 BPM P-R Int : 164 ms QRS Dur : 094 ms QT Int : 426 ms P-R-T Axes : 041 055 030 degrees QTc Int : 418 ms Sinus bradycardia Otherwise normal ECG When compared with ECG of 09-JAN-2021 17:22, (unconfirmed) No significant change was found Confirmed by Eder Gonzalez ([id number]) on 01/10/2021 3:42:24 PM Referred By: REFERRED SELF Confirmed By:Eder Gonzalez
--- NOTE | 2021-01-10 17:04 | Discharge Summary ---
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 Patient comes to the EMD today for complaints of right tongue and lip numbness, right eye lacrimation and decrease sensation to his right side of his face. This started a few days ago on his drive back from [place]. He also had complaint of right midfoot pain that has started as well. He denies any new medications and has not received any new vaccines. In the EMD he had routine labs drawn to include troponin I and D-dimer with his presentation likely dennison's palsy. The D-dimer and troponin I was elevated and subsequently had a CTA of the chest performed, which was negative for PE or acute process. Patient had and ECG done with non specific t-wave abnormality and no comparison. 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 He was at [place] this weekend for 7 days with his family where he was chasing his kids around the [place], he also was swimming in the ocean, without any chest pain and/or dyspnea. He remains without symptoms other than his numbness and facial sensation decrease at this time. Patient will be observed overnight, trend troponin I and ECG, MRI of the brain to rule out ischemia, ECHO and risk stratify his cardiac status. Patient does not have his COVID vaccine and his test on admission is NEGATIVE. Admission Exam Per Admitting Provider PHYSICAL EXAM: General: awake, alert, no apparent distress Head: Normocephalic, atraumatic ENT: PERRL, EOMI, no pharyngeal exudate, mucous membranes moist. Neuro: loss of wrinkles to right forehead, nasolabial fold on the righ, and right facial droop, sensation decreased to right face,nose, lip. AAO x 3, speech clear and appropriate, strength intact bilaterally 5/5, sensation intact and equal all extremities and dermatomes, no pronator drift Chest: equal rise and fall of the chest, no accessory muscle use, no heaves or thirlls, Clear to auscultation, on room air, Cardiac: Regular rate and rhythm, telemetry reviewed, skin warm dry, cap refill <3 seconds, peripheral pulses +2 no JVD, no murmur, no edema GI: NABS x 4 quadrants, soft, nontender to palpation, no rebound, guarding or tenderness : Spontaneously voiding, no pain, no CVA tenderness, Extremities: Normal inspection, no peripheral edema or erythema, calfs no ntender to palpation Psych: Normal mood and affect Skin: no rash or erythema Principal Diagnosis Dennison's palsy Lyme carditis Discharge Exam General: A&Ox3. NAD. Cooperative. HEENT: Atraumatic, normocephalic. Pulm: CTAB A&P. -wheezes, -rales, -rhonchi. Symmetrical chest rise. No increase work of breathing. No respiratory distress. Cardiac: RRR, -mrg. Radial pulses intact and symmetrical. Abdominal: Nontender, nondistended, soft. BS present. CRANIAL NERVES: II: Pupils equal and reactive, no relative afferent pupillary defect, no VF cuts III, IV, : EOM intact, no gaze preference or deviation, no nystagmus. V: normal sensation in V1, V2, and V3 segments bilaterally VII: Right-sided nasolabial fold flattening, inability to elevate right cheek/lip on smile, inability to hold air on right side with cheek puff. Mild lag on closing right eye, but able to close eyelids completely without exposed sclera. House Brackmann grade 3 impairment appreciated. VIII: normal hearing to speech IX, X: normal palatal elevation, no uvular deviation XI: 5/5 head turn and 5/5 shoulder shrug bilaterally XII: midline tongue protrusion MOTOR: RUE: 5/5 Shoulder internal rotation, external rotation, flexion, extension, abduction, adduction 5/5 Elbow flexion/extension, wrist flexion/extension 5/5 slubber frame changer strength, finger flexion/extension, interosseus LUE: 5/5 Shoulder internal rotation, external rotation, flexion, extension, abduction, adduction 5/5 Elbow flexion/extension, wrist flexion/extension 5/5 slubber frame changer strength, finger flexion/extension, interosseus RLE: 5/5 to hip flexion/extension, knee flexion/extension, ankle dorsiflexion/plantarflexion LLE: 5/5 to hip flexion/extension, knee flexion/extension, ankle dorsiflexion/plantarflexion SENSORY: Normal to touch in upper and lower extremities without deficit or asymmetry Discharge Data Allergies Allergy/AdvReac Type Severity Reaction Status Date / Time No Known Allergies Allergy Verified 01/09/21 12:59 Consultations 01/09/21 13:07 ED Decision to Admit Stat 01/09/21 16:16 Consult Lung Nodule Program Routine Ordered Studies 01/09/21 12:06 CT head/brain wo con Stat 01/09/21 13:06 CT angio chest PE protocol Stat 01/09/21 14:03 MR brain wo con Routine Hospital Course (1) Elevated troponin: Teddy Tillman is a 55-year-old male who was admitted with facial asymmetry consistent with Dennison's palsy and equivocal Lyme serology, who was found to have a mildly elevated troponin during admission suspicious for type II ischemia versus Lyme carditis. To do as outpatient: 1. Follow-up assessment of Dennison's palsy progression, decision to stop prednisone course at 7 days or taper 2. Assess improvement in Dennison's palsy, if worsening consider alternative etiologies and viral etiologies/antiviral treatment 3. Follow-up Lyme serology, presumed Lyme disease with Dennison's palsy and carditis 4. Discussed increase of simvastatin to atorvastatin 40 based on lipid panel results Elevated troponin Troponin 0 0.137, 0.140, 0.110 Echo with preserved ejection fraction, no wall motion abnormalities, no other abnormalities appreciated Suspect in context of Dennison's palsy and equivocal Lyme serology patient may have had a mild Lyme carditis. MT interval was not prolonged, no heart block was observed, patient was a candidate for doxycycline 14-day therapy. Patient does have a history of hyperlipidemia with high concern for ischemic abnormalities, patient will follow up with outpatient provider for consideration of stress test EKG stable without ischemic changes Lipids with LDL 144, recommended patient change simvastatin to atorvastatin. Patient preferred to defer this to PCP follow-up. (2) Dennison palsy: Dennison's palsy appreciated on clinical exam Suspected due to Lyme disease, differential includes viral etiologies Doxycycline 100 mg twice daily for Lyme with carditis as noted Prednisone 60 mg x 7-day course, taper per judgment of follow-up assessment by primary provider. Case discussed with Dr. Forbes. Continue omeprazole/pantoprazole while on doxycycline and prednisone MRI-: No acute infarct. No acute intracranial hemorrhage. A few scattered foci of T2 hyperintensity seen within the periventricular and subcortical white matter of the supratentorial brain. These are most pronounced within the bilateral parietal lobes. These are nonspecific but favor mild microvascular ischemic change. A demyelinating disease or Lyme disease could also have a similar appearance but are considered less likely. (3) HLD (hyperlipidemia): LDL increased to 144, recommended patient increase simvastatin to atorvastatin 40 mg. Patient deferred this at time of discharge, but will follow up recommendation with PCP (4) Right foot pain: With OA in his right foot on foot xray- no evidence of fracture (5) Lung nodule: 6mm subplueral- incidentally found on CTA of the chest - no smoking history - follow up with PCP and follow on imaging - Lung nodule program entered (6) Lyme carditis: Mild troponin elevation, equivocal Lyme serology, Dennison's palsy, and trace troponin leak suspicious for Lyme carditis without MT elongation on EKG 14-day doxycycline course as noted Total Time Total Time Spent Total Time Spent (In Minutes): Time spent on discharge including review of labs and images, coordination of care, clinical assessment, and physical exam approximately 40 minutes. Discharge Plan Discharge Items Patient Disposition: Home - Self-Care Reason For Visit: DENNISON'S PALSY ELEVATED TROPONIN Discharge Diagnosis: [place] Palsy ? Lyme Carditis vs Type 2 Troponin Leak Activity: Resume your previous activity Non-emergency contact: Primary Care Provider Call non-emergency contact if: you have any medication questions Follow-up/Referrals: Dav Forbes MD [Resident] - (in ~7 days at [facility]) PCP,NO [Primary Care Provider] - Diet: Regular Addtl Attending Provider Instructions: You were seen in the hospital for Dennison's Palsy and an elevated troponin. Your troponin was checked 3 times and was minimally elevated, and began to decrease by time of discharge. An ultrasound of your heart showed that your heart was pumping normally and did not show any signs of a heart attack, abnormal pumping, valve disease, or abnormal fluid. Your Lyme disease test was equivocal and pending send out confirmation which may take up to 7 days for a final result. You have been started on medications as noted below. Lyme disease can cause an irritation of the heart muscle called carditis which may have caused your heart markers, call troponin, to be elevated. Until resolution and follow-up with your primary care physician please avoid intense/strenuous physical activity. Your primary care provider may also order a stress test as an outpatient. You have been started on a steroid, prednisone, to help reduce inflammation, to treat Dennison's palsy. Please take prednisone 60 mg daily for 1 week. The potential for a 7-day course versus extension to taper was discussed with you and your primary care provider, this decision will be made based on clinical evaluation at your follow-up appointment. You have been started on an antibiotic, doxycycline, to treat presumptive Lyme disease. Please take doxycycline 100 mg twice daily for 14 days. Doxycycline can be rough on the stomach, please take doxycycline with a full glass of water. Doxycycline will make your skin very sensitive to sunlight and sunburn while you are taking it, prolonged direct sunlight while taking doxycycline. Your cholesterol was discussed during admission. Your LDL, bad cholesterol, was elevated at approximately 144. Ideally this would be less than 100. It was recommended that you increase your simvastatin, or switch to atorvastatin. You expressed an understanding of this, but would like to discuss this further with your primary care physician and your EKG was not changed at time of discharge. A follow-up appointment is being scheduled for you with the [facility] medicine clinic with Dr. Forbes. You should receive a call to confirm this appointment, you should be seen in approximately 7 days. If you do not receive a call to confirm this appointment, or need to cancel or change your appointment, please call their office at [phone]. If you develop any new or worsening symptoms including fever, chills, sweats, chest pain, chest pressure, difficulty breathing, uncontrolled nausea/vomiting, rash, wheezing, passing out or nearly passing out, bleeding, black/bloody bowel movements, or other new or concerning symptoms please call your primary care physician at [phone], or call 911 for re-evaluation in the emergency department if you are very concerned. Pending Studies at Discharge: Yes Studies:: Lyme serology Stand-Alone Forms: My [employer], Smoking Cessation Medications and DC Order Prescriptions: New doxycycline hyclate 100 mg capsule 100 mg PO BID 14 Days Qty: 28 RF: 0 prednisone 20 mg tablet 60 mg PO DAILY 7 Days Qty: 21 RF: 0 Continued multivitamin Tablet 1 tab PO QAM RF: 0 simvastatin 20 mg Tablet 20 mg PO QAM RF: 0 aspirin [Aspirin Low Dose] 81 mg Tablet,Delayed Release (Dr/Ec) 81 mg PO DAILY RF: 0 Discharge Orders: Discharge Order (Routine); Ordered 01/10/21 Ordered By: Dennys Almendarez Admission Data Admit Date/Time: 01/09/21 14:14 Attending Provider: Dennys Almendarez Admit Provider: Basil Hand Primary Care Provider: PCP,NO Other Providers: Basil Hand Coding Level of Care Code D/C DAY MANAGEMENT >30 MINS Diagnoses Elevated troponin R77.8 Dennison palsy G51.0 HLD (hyperlipidemia) E78.5 Right foot pain M79.671 Lung nodule R91.1 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
[2021-01-12 02:07] LABS: 18KDIGG Band NON-REACTIVE; 23KDIGG Band NON-REACTIVE; 23KDIGM Band NON-REACTIVE; 28KDIGG Band NON-REACTIVE; 30KDIGG Band NON-REACTIVE; 39KDIGG Band NON-REACTIVE; 39KDIGM Band NON-REACTIVE; 41KDIGG Band NON-REACTIVE; 41KDIGM Band NON-REACTIVE; 45KDIGG Band NON-REACTIVE; 58KDIGG Band NON-REACTIVE; 66KDIGG Band NON-REACTIVE; 93KDIGG Band NON-REACTIVE; Lyme Antibodies, WB IgG NEGATIVE (NEGATIVE); Lyme Antibodies, WB IgM NEGATIVE (NEGATIVE)
== END 2021-01-10 18:03 | disposition home or self-care (01) ==
LOC: ED 10:48 → 2N 10:48 → SUATTDRO 14:14 → 2N 15:20